=== PATIENT | male | born 1950 ===

== ENCOUNTER → 2019-12-06 15:26 | Outpatient (CLI) | payer SELFPAY ==
[2019-12-06 15:46] LABS: BASOPHILS 0.3 % (0-2); EOSINOPHILS 1.9 % (0-7); HEMATOCRIT 41.2 % (42.0-54.0); HEMOGLOBIN 13.8 g/dL (13.5-17.5); IMMATURE GRANULOCYTES 0.3 % (0-5); LYMPHOCYTES 16.6 % (15-50); MCH 29.4 pg (26.0-34.0); MCHC 33.5 g/dL (31.0-37.0); MCV 87.8 fL (80.0-100.0); MONOCYTES 11.5 % (2-11); NEUTROPHILS 69.4 % (40-80); PLATELET COUNT 272 10x3/uL (130-400); RBC 4.69 10x6/uL (4.20-6.10); RDW 14.2 % (11.5-14.5); WBC 5.8 10x3/uL (4.8-10.8)
[2019-12-06 15:54] LABS: APTT 37.8 SECONDS (22.8-39.4); INR 1.96 (0.85-1.17)
[2019-12-06 15:59] LABS: ALBUMIN 2.8 g/dL (3.4-5.0); ALKALINE PHOSPHATASE 128 U/L (30-120); ALT (SGPT) 27 U/L (10-68); BILIRUBIN - TOTAL 0.12 mg/dL (0.2-1.3); C-REACTIVE PROTEIN 1.5 mg/dL (0.0-0.9); CALC OSMOLALITY 278 mosm/kg (275-300); CALCIUM 7.9 mg/dL (8.5-10.1); CARBON DIOXIDE 29.2 mmol/L (21.0-32.0); CHLORIDE - SERUM 106 mmol/L (98-107); CREATININE - SERUM 0.7 mg/dL (0.6-1.3); GLUCOSE 80 mg/dL (74-106); PRE-ALBUMIN 16.3 mg/dL (18.0-35.7); SODIUM 139 mmol/L (136-145); UREA NITROGEN 19 mg/dL (7-18); eGFR NON AFRICAN AMERICAN > 90 mL/min (90-120)
== END | disposition home or self-care (01) ==
LOC: D.LABREF 15:26
PROVIDERS: ATTEND Internal Medicine
DX: M86.9 Osteomyelitis, unspecified (principal)

== ENCOUNTER → 2019-12-28 16:09 | Outpatient (CLI) | payer SELFPAY ==
[2019-12-28 16:35] LABS: BASOPHILS 0.5 % (0-2); EOSINOPHILS 3.3 % (0-7); HEMATOCRIT 32.7 % (42.0-54.0); HEMOGLOBIN 10.9 g/dL (13.5-17.5); IMMATURE GRANULOCYTES 0.5 % (0-5); MCHC 33.3 g/dL (31.0-37.0); MEAN PLATELET VOLUME 9.2 fL (7.4-10.4); MONOCYTES 7.8 % (2-11); NEUTROPHILS 72.9 % (40-80); PLATELET COUNT 257 10x3/uL (130-400); RBC 3.76 10x6/uL (4.20-6.10); RDW 14.2 % (11.5-14.5)
[2019-12-28 16:51] LABS: CREATININE - SERUM 0.8 mg/dL (0.6-1.3); VANCOMYCIN - TROUGH 12.1 ug/mL (10.0-20.0)
== END | disposition home or self-care (01) ==
LOC: D.LABREF 16:09
PROVIDERS: ATTEND Plastic Surgery
DX: L89.309 Pressure ulcer of unspecified buttock, unspecified stage (principal)

== ENCOUNTER → 2019-12-31 16:31 | Outpatient (CLI) | payer SELFPAY ==
[2019-12-31 16:54] LABS: BASOPHILS 0.5 % (0-2); EOSINOPHILS 2.6 % (0-7); HEMATOCRIT 34.9 % (42.0-54.0); HEMOGLOBIN 11.6 g/dL (13.5-17.5); IMMATURE GRANULOCYTES 0.6 % (0-5); LYMPHOCYTES 14.7 % (15-50); MCHC 33.2 g/dL (31.0-37.0); MCV 87.3 fL (80.0-100.0); MEAN PLATELET VOLUME 8.7 fL (7.4-10.4); NEUTROPHILS 71.6 % (40-80); PLATELET COUNT 292 10x3/uL (130-400); RDW 14.5 % (11.5-14.5); WBC 6.5 10x3/uL (4.8-10.8)
[2019-12-31 17:16] LABS: CREATININE - SERUM 0.8 mg/dL (0.6-1.3)
== END | disposition home or self-care (01) ==
LOC: D.LABREF 16:31
PROVIDERS: ATTEND Plastic Surgery
DX: L89.309 Pressure ulcer of unspecified buttock, unspecified stage (principal)

== ENCOUNTER → 2020-01-07 21:12 | Outpatient (CLI) | payer SELFPAY ==
[2020-01-07 21:52] LABS: BASOPHILS 0.6 % (0-2); EOSINOPHILS 1.9 % (0-7); HEMATOCRIT 37.6 % (42.0-54.0); HEMOGLOBIN 12.1 g/dL (13.5-17.5); IMMATURE GRANULOCYTES 0.6 % (0-5); LYMPHOCYTES 12.4 % (15-50); MCH 28.8 pg (26.0-34.0); MCHC 32.2 g/dL (31.0-37.0); MCV 89.5 fL (80.0-100.0); MEAN PLATELET VOLUME 9.2 fL (7.4-10.4); MONOCYTES 11.3 % (2-11); NEUTROPHILS 73.2 % (40-80); PLATELET COUNT 274 10x3/uL (130-400); RDW 15.4 % (11.5-14.5); WBC 6.5 10x3/uL (4.8-10.8)
[2020-01-07 22:11] LABS: CREATININE - SERUM 1.1 mg/dL (0.6-1.3); VANCOMYCIN - TROUGH 17.7 ug/mL (10.0-20.0)
== END | disposition home or self-care (01) ==
LOC: D.LABREF 21:12
PROVIDERS: ATTEND Internal Medicine
DX: L89.329 Pressure ulcer of left buttock, unspecified stage (principal)

== ENCOUNTER → 2020-01-11 16:36 | Outpatient (CLI) | payer SELFPAY ==
[2020-01-11 16:59] LABS: BASOPHILS 0.3 % (0-2); EOSINOPHILS 2.1 % (0-7); HEMOGLOBIN 12.4 g/dL (13.5-17.5); IMMATURE GRANULOCYTES 0.5 % (0-5); LYMPHOCYTES 12.7 % (15-50); MCHC 32.6 g/dL (31.0-37.0); MEAN PLATELET VOLUME 9.6 fL (7.4-10.4); MONOCYTES 12.4 % (2-11); PLATELET COUNT 216 10x3/uL (130-400); RBC 4.27 10x6/uL (4.20-6.10); RDW 15.2 % (11.5-14.5); WBC 5.7 10x3/uL (4.8-10.8)
[2020-01-11 17:23] LABS: VANCOMYCIN - TROUGH 17.6 ug/mL (10.0-20.0)
== END | disposition home or self-care (01) ==
LOC: D.LABREF 16:36
PROVIDERS: ATTEND Plastic Surgery
DX: L89.329 Pressure ulcer of left buttock, unspecified stage (principal)

== ENCOUNTER → 2020-01-14 15:51 | Outpatient (CLI) | payer SELFPAY ==
[2020-01-14 15:59] LABS: BASOPHILS 0.7 % (0-2); EOSINOPHILS 4.3 % (0-7); HEMATOCRIT 37.9 % (42.0-54.0); HEMOGLOBIN 12.6 g/dL (13.5-17.5); IMMATURE GRANULOCYTES 0.4 % (0-5); LYMPHOCYTES 12.5 % (15-50); MCHC 33.2 g/dL (31.0-37.0); MCV 87.3 fL (80.0-100.0); MEAN PLATELET VOLUME 9.9 fL (7.4-10.4); MONOCYTES 12.8 % (2-11); NEUTROPHILS 69.3 % (40-80); PLATELET COUNT 193 10x3/uL (130-400); RBC 4.34 10x6/uL (4.20-6.10); WBC 5.6 10x3/uL (4.8-10.8)
[2020-01-14 16:38] LABS: CREATININE - SERUM 0.8 mg/dL (0.6-1.3); VANCOMYCIN - TROUGH 17.8 ug/mL (10.0-20.0)
== END | disposition home or self-care (01) ==
LOC: D.LABREF 15:51
PROVIDERS: ATTEND Plastic Surgery
DX: L89.319 Pressure ulcer of right buttock, unspecified stage (principal)

== ENCOUNTER → 2020-01-21 15:36 | Outpatient (CLI) | payer SELFPAY ==
[2020-01-21 16:12] LABS: BASOPHILS 0.8 % (0-2); EOSINOPHILS 4.3 % (0-7); IMMATURE GRANULOCYTES 0.5 % (0-5); LYMPHOCYTES 12.4 % (15-50); MCH 28.8 pg (26.0-34.0); MCHC 32.5 g/dL (31.0-37.0); MCV 88.7 fL (80.0-100.0); MEAN PLATELET VOLUME 10.2 fL (7.4-10.4); MONOCYTES 12.9 % (2-11); NEUTROPHILS 69.1 % (40-80); RBC 4.51 10x6/uL (4.20-6.10)
[2020-01-21 16:16] LABS: PLATELET COUNT 136 10x3/uL (130-400)
[2020-01-21 16:24] LABS: CREATININE - SERUM 0.8 mg/dL (0.6-1.3); VANCOMYCIN - TROUGH 16.5 ug/mL (10.0-20.0)
== END | disposition home or self-care (01) ==
LOC: D.LABREF 15:36
PROVIDERS: ATTEND Plastic Surgery
DX: L89.329 Pressure ulcer of left buttock, unspecified stage (principal)

== ENCOUNTER → 2020-01-28 16:08 | Outpatient (CLI) | payer SELFPAY ==
[2020-01-28 16:24] LABS: HEMATOCRIT 40.4 % (42.0-54.0); HEMOGLOBIN 13.1 g/dL (13.5-17.5); MCH 28.4 pg (26.0-34.0); MCHC 32.4 g/dL (31.0-37.0); MCV 87.6 fL (80.0-100.0); MEAN PLATELET VOLUME 10.3 fL (7.4-10.4); PLATELET COUNT 142 10x3/uL (130-400); RBC 4.61 10x6/uL (4.20-6.10); WBC 5.7 10x3/uL (4.8-10.8)
[2020-01-28 16:32] LABS: CREATININE - SERUM 0.9 mg/dL (0.6-1.3); VANCOMYCIN - TROUGH 18.1 ug/mL (10.0-20.0)
== END | disposition home or self-care (01) ==
LOC: D.LABREF 16:08
PROVIDERS: ATTEND Internal Medicine
DX: L89.329 Pressure ulcer of left buttock, unspecified stage (principal)

== ENCOUNTER → 2020-02-11 15:39 | Outpatient (CLI) | payer SELFPAY ==
[2020-02-11 16:26] LABS: ALBUMIN 2.7 g/dL (3.4-5.0); ALKALINE PHOSPHATASE 134 U/L (30-120); ALT (SGPT) 36 U/L (10-68); BILIRUBIN - TOTAL 0.35 mg/dL (0.2-1.3); CALC OSMOLALITY 270 mosm/kg (275-300); CALCIUM 8.1 mg/dL (8.5-10.1); CARBON DIOXIDE 26.9 mmol/L (21.0-32.0); CHLORIDE - SERUM 102 mmol/L (98-107); CREATININE - SERUM 0.8 mg/dL (0.6-1.3); GLUCOSE 77 mg/dL (74-106); POTASSIUM - SERUM 4.7 mmol/L (3.5-5.1); PROTEIN - SERUM 5.7 g/dL (6.4-8.2); SODIUM 135 mmol/L (136-145); UREA NITROGEN 17 mg/dL (7-18); eGFR NON AFRICAN AMERICAN > 90 mL/min (90-120)
== END | disposition home or self-care (01) ==
LOC: D.LABREF 15:39
PROVIDERS: ATTEND Internal Medicine
DX: T85.9XXA Unspecified complication of internal prosthetic device, implant and graft, initial encounter (principal)

== ENCOUNTER → 2020-03-10 21:13 | Outpatient (CLI) | payer SELFPAY ==
[2020-03-10 21:47] LABS: BILIRUBIN NEGATIVE (NEGATIVE); GLUCOSE NEGATIVE (NEGATIVE); KETONE NEGATIVE (NEGATIVE); NITRITE POSITIVE (NEGATIVE); SPECIFIC GRAVITY 1.005 (1.005-1.020); UROBILINOGEN NORMAL (NORMAL)
[2020-03-10 21:48] LABS: BACTERIA MANY /hpf (NEGATIVE); RED CELLS - URINE OCC /hpf (0-5); WHITE CELLS - URINE 0-5 /hpf (NEGATIVE)
== END | disposition home or self-care (01) ==
LOC: D.LABREF 21:13
PROVIDERS: ATTEND Internal Medicine
DX: N39.0 Urinary tract infection, site not specified (principal)